=== PATIENT | female | born 1990 | race African-American/Black ===

== ENCOUNTER 2020-08-13 09:01 | Emergency (ER) | payer MEDICAID ==
[~2020-08-13] VITALS: Ht 162.6 cm; Wt 63.0 kg
[~2020-08-13 09:01] MED LIST: ACET650T37 MT; ALBU90AE INH; DOXY150T5 MT; ONDA4TAB5 PO
[2020-08-13] MEDS ORDERED: IBUPROFEN 600MG TABLET PO ONE (10:30)
[2020-08-13 10:53] LABS: CLARITY URINE CLEAR (CLEAR); COLOR URINE YELLOW (YELLOW); KETONES URINE NEGATIVE (NEGATIVE); LEUKOCYTE ESTERASE URINE NEGATIVE (NEGATIVE); NITRITE URINE NEGATIVE (NEGATIVE); OCCULT BLOOD URINE NEGATIVE (NEGATIVE); PROTEIN URINE NEGATIVE (NEGATIVE); SPECIFIC GRAVITY URINE 1.005 (1.005-1.030); UROBILINOGEN URINE 0.2 E.U./dL (0.2-1.0)
[2020-08-13 11:35] LABS: HEMATOCRIT. 27.6 % (36.0-48.0); HEMOGLOBIN. 8.5 g/dL (12.0-16.0); MEAN CORPUSCULAR HEMOGLOBIN 23.7 pg (28.0-32.0); MEAN CORPUSCULAR VOLUME 76.5 fL (81.0-99.0); MEAN PLATELET VOLUME 6.7 fl (7.4-10.4); PLATELET 465 x1000/uL (130-400); RED BLOOD CELL COUNT 3.61 mill/uL (4.2-5.4); RED CELL DISTRIBUTION WIDTH 35.7 % (11.6-14.6)
[2020-08-13 11:43] LABS: CHLORIDE 110 mEq/L (98-107)
[2020-08-13 11:59] LABS: HCG SCREEN NEGATIVE
[2020-08-13 12:09] LABS: PLATELET ESTIMATE INCREASED
[2020-08-13 12:13] LABS: ETHANOL BLOOD 351 mg/dL
[2020-08-13] MEDS ORDERED: IBUP-2029 MT (12:36)
[2020-08-13 14:00] VITALS: BP 116/84
== END 2020-08-13 14:27 | disposition home or self-care (01) ==
LOC: ER 09:01
DX: R10.2 Pelvic and perineal pain (principal); F10.129 Alcohol abuse with intoxication, unspecified; J45.909 Unspecified asthma, uncomplicated; Y90.8 Blood alcohol level of 240 mg/100 ml or more; Z98.890 Other specified postprocedural states; Z91.012 Allergy to eggs; Z91.018 Allergy to other foods; Z91.010 Allergy to peanuts
CPT/HCPCS: 36415; 74176; 80053; 80320; 81003; 81025; 84703; 85025; 93005; 99285; G0480

== ENCOUNTER 2020-10-18 10:54 | Emergency (ER) | payer MEDICAID, OTHER ==
[~2020-10-18] VITALS: Ht 170.2 cm; Wt 68.0 kg
[~2020-10-18 10:54] MED LIST changes: +IBUP-2029 MT
[2020-10-18] MEDS ORDERED: ONDANSETRON HCL 4MG/2ML INJ IV STA (11:15)
[2020-10-18] MEDS ORDERED: MORPHINE SULFATE 4 MG/ML CPJ (NOT FOR IM USE) IV STA (11:15)
[2020-10-18] MEDS ORDERED: VISCOUS LIDOCAINE 2% 15 ML UDC PO STA (11:15)
[2020-10-18] MEDS ORDERED: MAGNESIUM/ALUMINUM HYDROXIDE/SIMETHICONE 30ML UDC PO STA (11:15)
[2020-10-18] MEDS ORDERED: SODIUM CHLORIDE 0.9% 1,000 ML IV ONE (11:15)
[2020-10-18 12:06] LABS: CLARITY URINE CLEAR (CLEAR); COLOR URINE YELLOW (YELLOW); KETONES URINE 2+ (NEGATIVE); LEUKOCYTE ESTERASE URINE NEGATIVE (NEGATIVE); NITRITE URINE NEGATIVE (NEGATIVE); OCCULT BLOOD URINE NEGATIVE (NEGATIVE); PROTEIN URINE NEGATIVE (NEGATIVE); SPECIFIC GRAVITY URINE 1.005 (1.005-1.030); UROBILINOGEN URINE 0.2 E.U./dL (0.2-1.0)
[2020-10-18 12:07] LABS: BASOPHILS % 2.4 % (0.0-2.0); EOSINOPHILS % 0.1 % (0.0-5.0); HEMATOCRIT. 27.3 % (36.0-48.0); HEMOGLOBIN. 8.6 g/dL (12.0-16.0); LYMPHOCYTES % 37.2 % (20.0-50.0); MEAN CORPUSCULAR HEMOGLOBIN 22.6 pg (28.0-32.0); MEAN CORPUSCULAR VOLUME 72.1 fL (81.0-99.0); MEAN PLATELET VOLUME 7.4 fl (7.4-10.4); NEUTROPHILS % 49.3 % (40.0-76.0); PLATELET 470 x1000/uL (130-400); RED BLOOD CELL COUNT 3.79 mill/uL (4.2-5.4); RED CELL DISTRIBUTION WIDTH 25.1 % (11.6-14.6)
[2020-10-18 12:13] LABS: CHLORIDE 97 mEq/L (98-107)
[2020-10-18 12:17] LABS: ETHANOL BLOOD < 10 mg/dL
[2020-10-18 12:25] LABS: PLATELET ESTIMATE INCREASED
[2020-10-18 12:27] LABS: INR 1.1; PROTHROMBIN TIME 11.5 sec (9.6-11.0)
[2020-10-18 16:51] VITALS: BP 119/81
== END 2020-10-18 17:19 | disposition home or self-care (01) ==
LOC: ER 10:54
DX: R10.9 Unspecified abdominal pain (principal); E86.0 Dehydration; J45.909 Unspecified asthma, uncomplicated; Z87.19 Personal history of other diseases of the digestive system; Z91.010 Allergy to peanuts; Z91.012 Allergy to eggs; Z91.048 Other nonmedicinal substance allergy status
CPT/HCPCS: 36415; 76705; 80053; 80320; 81003; 81025; 83690; 85025; 85610; 93005; 96361; 96374; 96375; 99285; J2270; J2405; J7030; Z7610; G0480

== ENCOUNTER 2020-11-01 04:22 | Inpatient (IN) | payer OTHER ==
[~2020-11-01] VITALS: Ht 165.1 cm; Wt 73.5 kg
[2020-11-01] MEDS ORDERED: ONDANSETRON 4MG ODT PO STA (04:30)
[2020-11-01] MEDS ORDERED: KETOROLAC 60MG/2ML VIAL IM STA (04:30)
[2020-11-01] MEDS ORDERED: SODIUM CHLORIDE 0.9% 1,000 ML IV ONE ×2 (04:45→09:30)
[2020-11-01 05:44] LABS: HEMATOCRIT. 32.1 % (36.0-48.0); HEMOGLOBIN. 9.6 g/dL (12.0-16.0); MEAN CORPUSCULAR HEMOGLOBIN 21.1 pg (28.0-32.0); MEAN CORPUSCULAR VOLUME 70.9 fL (81.0-99.0); MEAN PLATELET VOLUME 7.1 fl (7.4-10.4); PLATELET 316 x1000/uL (130-400); RED BLOOD CELL COUNT 4.53 mill/uL (4.2-5.4)
[2020-11-01 05:45] LABS: CHLORIDE 90 mEq/L (98-107)
[2020-11-01 05:50] LABS: ETHANOL BLOOD < 10 mg/dL
[2020-11-01 07:45] LABS: CLARITY URINE CLEAR (CLEAR); COLOR URINE ORANGE (YELLOW); KETONES URINE 4+ (NEGATIVE); LEUKOCYTE ESTERASE URINE NEGATIVE (NEGATIVE); NITRITE URINE NEGATIVE (NEGATIVE); OCCULT BLOOD URINE NEGATIVE (NEGATIVE); PH URINE 5.5 (4.5-8.0); PROTEIN URINE 2+ (NEGATIVE); SPECIFIC GRAVITY URINE 1.027 (1.005-1.030)
[2020-11-01 08:00] LABS: *AMPHETAMINES SCREEN URINE NEGATIVE (NEGATIVE); *BARBITURATES SCREEN URINE NEGATIVE (NEGATIVE); *BENZODIAZEPINES SCREEN URINE NEGATIVE (NEGATIVE); *COCAINE SCREEN URINE NEGATIVE (NEGATIVE); METHADONE URINE SCREEN NEGATIVE (NEGATIVE); OPIATES URINE SCREEN NEGATIVE (NEGATIVE); PHENCYCLIDINE URINE SCREEN NEGATIVE (NEGATIVE)
[2020-11-01 08:03] LABS: CANNABINOID URINE SCREEN PRESUMTIVE POSITIVE (NEGATIVE)
[2020-11-01] MEDS ORDERED: ACETAMINOPHEN WITH CODEINE 300/30MG TABLET PO ONE (09:00)
[2020-11-01] MEDS ORDERED: IBUP-2030 PO (09:09)
[2020-11-01 10:26] LABS: PLATELET ESTIMATE NORMAL
[2020-11-01] MEDS ORDERED: ACETAMINOPHEN 325MG TABLET PO PRN (13:45)
[2020-11-01] MEDS ORDERED: ONDANSETRON HCL 4MG/2ML INJ IV PRN (13:45)
[2020-11-01] MEDS: KETOROLAC 30MG/ML VIAL IV PRN ×2 (15:18→21:26)
[2020-11-01 18:01] VITALS: BP 142/62
[2020-11-01 20:00] VITALS: BP 119/73
[2020-11-01 21:00] VITALS: BP 136/83
[2020-11-01 22:00] VITALS: BP 135/84
[2020-11-02] VITALS (8 sets, daily range): BP systolic 99–146; BP diastolic 57–96
[2020-11-02 07:10] LABS: HEMOGLOBIN. 8.5 g/dL (12.0-16.0); MEAN CORPUSCULAR HEMOGLOBIN 21.6 pg (28.0-32.0); MEAN CORPUSCULAR VOLUME 70.9 fL (81.0-99.0); MEAN PLATELET VOLUME 7.9 fl (7.4-10.4); PLATELET 221 x1000/uL (130-400); RED BLOOD CELL COUNT 3.96 mill/uL (4.2-5.4); RED CELL DISTRIBUTION WIDTH 23.9 % (11.6-14.6)
[2020-11-02 07:21] LABS: CHLORIDE 98 mEq/L (98-107)
[2020-11-02] MEDS ORDERED: POTASSIUM CHLORIDE 20MEQ TABLET SR PO NR (09:30)
[2020-11-02] MEDS: KETOROLAC 30MG/ML VIAL IV PRN ×2 (10:58→20:32)
[2020-11-02 13:26] LABS: PLATELET ESTIMATE NORMAL
[2020-11-03] VITALS: BP 114/71
[2020-11-03 02:00] VITALS: BP 125/84
[2020-11-03 04:00] VITALS: BP 118/78
[2020-11-03 08:00] VITALS: BP 111/74
[2020-11-03] MEDS: KETOROLAC 30MG/ML VIAL IV PRN (09:37)
[2020-11-03 12:00] VITALS: BP 112/74
[2020-11-03] MEDS ORDERED: IBUP-2029 MT (12:34)
[2020-11-03 12:42] VITALS: BP 112/74
== END 2020-11-03 14:45 | disposition home or self-care (01) | DRG 249 ==
LOC: ER 04:22 → 5EST 10:35 → ENRESERV 15:07
PROVIDERS: ADMIT Internal Medicine; ATTEND Internal Medicine
DX: K52.9 Noninfective gastroenteritis and colitis, unspecified (principal); E87.1 Hypo-osmolality and hyponatremia; E87.8 Other disorders of electrolyte and fluid balance, not elsewhere classified; D25.9 Leiomyoma of uterus, unspecified; D72.825 Bandemia; D64.9 Anemia, unspecified; R74.01 Elevation of levels of liver transaminase levels; J45.909 Unspecified asthma, uncomplicated; F12.90 Cannabis use, unspecified, uncomplicated; Z91.010 Allergy to peanuts; Z91.02 Food additives allergy status; Z79.1 Long term (current) use of non-steroidal anti-inflammatories (NSAID); Z79.899 Other long term (current) drug therapy; Z83.3 Family history of diabetes mellitus; Z82.49 Family history of ischemic heart disease and other diseases of the circulatory system
CPT/HCPCS: 36415; 71045; 76830; 76856; 80048; 80053; 80305; 80320; 81003; 83605; 84145; 84484; 85025; 93005; 99285; J1885; J2405; J7030; Q0162; G0480

== ENCOUNTER 2020-11-11 09:59 | Emergency (ER) | payer OTHER ==
[~2020-11-11] VITALS: Ht 162.6 cm; Wt 68.0 kg
[~2020-11-11 09:59] MED LIST changes: -DOXY150T5 MT; +IBUP-2030 PO
[2020-11-11] MEDS ORDERED: ONDANSETRON HCL 4MG/2ML INJ IV STA (11:20)
[2020-11-11] MEDS ORDERED: SODIUM CHLORIDE 0.9% 1,000 ML IV ONE (11:30)
[2020-11-11 11:44] LABS: HEMOGLOBIN. 8.7 g/dL (12.0-16.0); MEAN CORPUSCULAR HEMOGLOBIN 22.1 pg (28.0-32.0); MEAN CORPUSCULAR VOLUME 71.1 fL (81.0-99.0); MEAN PLATELET VOLUME 6.9 fl (7.4-10.4); PLATELET 215 x1000/uL (130-400); RED BLOOD CELL COUNT 3.95 mill/uL (4.2-5.4); RED CELL DISTRIBUTION WIDTH 28.2 % (11.6-14.6)
[2020-11-11] MEDS ORDERED: PANTOPRAZOLE SODIUM 40 MG/VIAL IV ONE (11:45)
[2020-11-11] MEDS ORDERED: LORAZEPAM 2MG/ML CPJ IV ONE (11:45)
[2020-11-11 11:50] LABS: CHLORIDE 92 mEq/L (98-107)
[2020-11-11 11:51] LABS: HCG SCREEN NEGATIVE
[2020-11-11 12:13] LABS: PLATELET ESTIMATE NORMAL
[2020-11-11 12:47] LABS: CLARITY URINE CLOUDY (CLEAR); COLOR URINE YELLOW (YELLOW); KETONES URINE 4+ (NEGATIVE); LEUKOCYTE ESTERASE URINE NEGATIVE (NEGATIVE); NITRITE URINE NEGATIVE (NEGATIVE); OCCULT BLOOD URINE NEGATIVE (NEGATIVE); PROTEIN URINE 1+ (NEGATIVE); SPECIFIC GRAVITY URINE 1.019 (1.005-1.030); UROBILINOGEN URINE 0.2 E.U./dL (0.2-1.0)
[2020-11-11 16:00] VITALS: BP 128/69
== END 2020-11-11 16:27 | disposition home or self-care (01) ==
LOC: ER 10:08
DX: R11.2 Nausea with vomiting, unspecified (principal); R10.9 Unspecified abdominal pain; D72.819 Decreased white blood cell count, unspecified; D64.9 Anemia, unspecified; E86.0 Dehydration; J45.909 Unspecified asthma, uncomplicated; Z79.899 Other long term (current) drug therapy; Z91.012 Allergy to eggs; Z91.010 Allergy to peanuts; Z91.018 Allergy to other foods
CPT/HCPCS: 36415; 80053; 81003; 83690; 84703; 85025; 96361; 96374; 96375; 99291; C9113; J2060; J2405; J7030; Z7610

== ENCOUNTER 2020-12-18 15:05 | Emergency (ER) | payer OTHER ==
[~2020-12-18] VITALS: Ht 167.6 cm; Wt 80.0 kg
[2020-12-18 16:30] LABS: CLARITY URINE CLEAR (CLEAR); COLOR URINE YELLOW (YELLOW); KETONES URINE NEGATIVE (NEGATIVE); LEUKOCYTE ESTERASE URINE NEGATIVE (NEGATIVE); NITRITE URINE NEGATIVE (NEGATIVE); OCCULT BLOOD URINE NEGATIVE (NEGATIVE); PROTEIN URINE 1+ (NEGATIVE); SPECIFIC GRAVITY URINE 1.006 (1.005-1.030); UROBILINOGEN URINE 0.2 E.U./dL (0.2-1.0)
[2020-12-18] MEDS ORDERED: SODIUM CHLORIDE 0.9% 1,000 ML IV ONE (16:30)
[2020-12-18 16:43] LABS: *AMPHETAMINES SCREEN URINE NEGATIVE (NEGATIVE); *BARBITURATES SCREEN URINE NEGATIVE (NEGATIVE); *BENZODIAZEPINES SCREEN URINE NEGATIVE (NEGATIVE); *COCAINE SCREEN URINE NEGATIVE (NEGATIVE); METHADONE URINE SCREEN NEGATIVE (NEGATIVE)
[2020-12-18 16:44] LABS: CANNABINOID URINE SCREEN NEGATIVE (NEGATIVE); OPIATES URINE SCREEN NEGATIVE (NEGATIVE); PHENCYCLIDINE URINE SCREEN NEGATIVE (NEGATIVE)
[2020-12-18 16:45] LABS: HEMATOCRIT. 34.9 % (36.0-48.0); HEMOGLOBIN. 10.9 g/dL (12.0-16.0); MEAN CORPUSCULAR VOLUME 76.8 fL (81.0-99.0); MEAN PLATELET VOLUME 6.7 fl (7.4-10.4); PLATELET 386 x1000/uL (130-400); RED BLOOD CELL COUNT 4.55 mill/uL (4.2-5.4)
[2020-12-18 16:50] LABS: CHLORIDE 102 mEq/L (98-107)
[2020-12-18 17:41] LABS: PLATELET ESTIMATE NORMAL
[2020-12-18 18:25] LABS: HCG SCREEN NEGATIVE
[2020-12-18 19:02] VITALS: BP 134/83
== END 2020-12-18 19:03 | disposition home or self-care (01) ==
LOC: ER 15:05
DX: R53.81 Other malaise (principal); Z79.899 Other long term (current) drug therapy; Z91.010 Allergy to peanuts; Z91.012 Allergy to eggs; Z91.048 Other nonmedicinal substance allergy status; J45.909 Unspecified asthma, uncomplicated
CPT/HCPCS: 36415; 71045; 80053; 80305; 80320; 81003; 81025; 83690; 83880; 84443; 84484; 84703; 85025; 99284; J7030; G0480

== ENCOUNTER 2021-04-14 14:54 | Inpatient (IN) | payer MEDICAID, OTHER ==
[~2021-04-14] VITALS: Ht 167.6 cm; Wt 69.9 kg
[~2021-04-14 14:54] MED LIST changes: -IBUP-2029 MT; -IBUP-2030 PO; +OMEP40CA20 MT; +ONDA4TAB5 MT
[2021-04-14] MEDS ORDERED: ONDANSETRON HCL 4MG/2ML INJ IV STA (15:26)
[2021-04-14] MEDS ORDERED: MORPHINE SULFATE 4 MG/ML CPJ (NOT FOR IM USE) IV STA (15:26)
[2021-04-14] MEDS ORDERED: SODIUM CHLORIDE 0.9% 1,000 ML IV ONE ×2 (15:30→20:00)
[2021-04-14 16:17] LABS: BASOPHILS % 1.7 % (0.0-2.0); EOSINOPHILS % 0.1 % (0.0-5.0); HEMATOCRIT. 33.8 % (36.0-48.0); HEMOGLOBIN. 10.4 g/dL (12.0-16.0); LYMPHOCYTES % 10.8 % (20.0-50.0); MEAN CORPUSCULAR HEMOGLOBIN 26.8 pg (28.0-32.0); MEAN CORPUSCULAR VOLUME 86.7 fL (81.0-99.0); MEAN PLATELET VOLUME 7.6 fl (7.4-10.4); MONOCYTES % 8.6 % (2.0-8.0); NEUTROPHILS % 78.8 % (40.0-76.0); PLATELET 128 x1000/uL (130-400); RED CELL DISTRIBUTION WIDTH 28.6 % (11.6-14.6)
[2021-04-14 16:25] LABS: CHLORIDE 94 mEq/L (98-107)
[2021-04-14 16:29] LABS: INR 1.2; PROTHROMBIN TIME 12.3 sec (9.6-11.0)
[2021-04-14 16:30] LABS: ETHANOL BLOOD 54 mg/dL
[2021-04-14 16:34] LABS: HCG SCREEN NEGATIVE
[2021-04-14 17:43] LABS: PLATELET ESTIMATE SLIGHTLY DECREASED
[2021-04-14] MEDS ORDERED: HALOPERIDOL LACTATE 5MG/ML VIAL IM ONE (20:00)
[2021-04-14] MEDS ORDERED: LORAZEPAM 2MG/ML CPJ IV ONE (20:00)
[2021-04-14] MEDS ORDERED: IOHEXOL-300 100 ML BOTTLE ONE (21:00)
[2021-04-15] MEDS ORDERED: ONDANSETRON HCL 4MG/2ML INJ IV PRN (08:15)
[2021-04-15] MEDS ORDERED: ACETAMINOPHEN 325MG TABLET PO PRN (08:15)
[2021-04-15] MEDS ORDERED: LORAZEPAM 2MG/ML CPJ IV PRN (08:15)
[2021-04-15] MEDS ORDERED: FOLIC ACID 1 MG, THIAMINE HCL 100 MG, MVI, ADULT NO.1 10 ML in DEXTROSE 5% WATER 1,000 ML IV ONE (09:00)
[2021-04-15 09:56] VITALS: BP 117/83
[2021-04-15 12:00] VITALS: BP 122/87
[2021-04-15] MEDS ORDERED: TOPA25 PO (12:54)
[2021-04-15 12:55] VITALS: BP 128/83
[2021-04-15 13:30] VITALS: BP 117/83
[2021-04-15 18:45] VITALS: BP 121/90
[2021-04-15] MEDS ORDERED: FAMOTIDINE 20MG TABLET PO SCH (21:00)
== END 2021-04-15 20:35 | disposition home or self-care (01) | DRG 241 ==
LOC: ER 15:01 → MICUSO 21:34 → EDBEDREQTM 21:39 → EDBEDREQ 21:39 → 6EST 04-15 08:25
PROVIDERS: ADMIT Internal Medicine; ATTEND Internal Medicine
DX: K29.20 Alcoholic gastritis without bleeding (principal); E87.8 Other disorders of electrolyte and fluid balance, not elsewhere classified; E87.1 Hypo-osmolality and hyponatremia; K76.0 Fatty (change of) liver, not elsewhere classified; D64.9 Anemia, unspecified; E87.5 Hyperkalemia; F10.229 Alcohol dependence with intoxication, unspecified; Y90.2 Blood alcohol level of 40-59 mg/100 ml; J45.909 Unspecified asthma, uncomplicated; K86.1 Other chronic pancreatitis; Z91.012 Allergy to eggs; Z91.010 Allergy to peanuts; Z91.018 Allergy to other foods; Z79.899 Other long term (current) drug therapy; Z71.41 Alcohol abuse counseling and surveillance of alcoholic
CPT/HCPCS: 36415; 74177; 80053; 80320; 84703; 85025; 93005; 99285; J1630; J2060; J2270; J2405; J3411; J3490; J7030; J7070; Q9967; G0480

== ENCOUNTER 2021-08-22 10:01 | Emergency (ER) | payer MEDICAID, OTHER ==
[~2021-08-22] VITALS: Ht 160 cm; Wt 73.0 kg
[~2021-08-22 10:01] MED LIST changes: +TOPA25 PO
[2021-08-22] MEDS ORDERED: SODIUM CHLORIDE 0.9% 1,000 ML IV ONE ×2 (10:15→12:15)
[2021-08-22 11:27] LABS: HEMATOCRIT. 34.8 % (36.0-48.0); HEMOGLOBIN. 10.4 g/dL (12.0-16.0); MEAN CORPUSCULAR VOLUME 69.9 fL (81.0-99.0); MEAN PLATELET VOLUME 8.4 fl (7.4-10.4); PLATELET 173 x1000/uL (130-400); RED BLOOD CELL COUNT 4.98 mill/uL (4.2-5.4); RED CELL DISTRIBUTION WIDTH 25.4 % (11.6-14.6)
[2021-08-22 11:35] LABS: CHLORIDE 94 mEq/L (98-107)
[2021-08-22 11:48] LABS: B-HCG QUANTITATIVE < 1 mIU/mL (<3)
[2021-08-22 11:58] LABS: HCG SCREEN NEGATIVE
[2021-08-22 12:35] LABS: PLATELET ESTIMATE NORMAL
[2021-08-22 13:15] LABS: INR 1.1; PARTIAL THROMBOPLASTIN TIME 25.2 sec (23.4-31.0); PROTHROMBIN TIME 11.4 sec (9.6-11.0)
[2021-08-22] MEDS ORDERED: KETOROLAC 15MG/ML VIAL IV NR (13:15)
[2021-08-22] MEDS ORDERED: ONDANSETRON HCL 4MG/2ML INJ IV NR (13:15)
[2021-08-22] MEDS ORDERED: ONDA4TAB5 MT (15:30)
[2021-08-22] MEDS ORDERED: MEDR10TA11 MT (15:33)
[2021-08-22 15:51] LABS: CLARITY URINE CLOUDY (CLEAR); COLOR URINE RED (YELLOW); KETONES URINE 2+ (NEGATIVE); LEUKOCYTE ESTERASE URINE 1+ (NEGATIVE); NITRITE URINE NEGATIVE (NEGATIVE); OCCULT BLOOD URINE 3+ (NEGATIVE); PH URINE 5.5 (4.5-8.0); PROTEIN URINE 3+ (NEGATIVE); UROBILINOGEN URINE 0.2 E.U./dL (0.2-1.0)
[2021-08-22] MEDS ORDERED: NITR-87 MT (16:59)
[2021-08-22 17:11] VITALS: BP 121/76
[2021-08-22 17:34] LABS: *AMPHETAMINES SCREEN URINE NEGATIVE (NEGATIVE); *BENZODIAZEPINES SCREEN URINE NEGATIVE (NEGATIVE); *COCAINE SCREEN URINE NEGATIVE (NEGATIVE); CANNABINOID URINE SCREEN NEGATIVE (NEGATIVE); OPIATES URINE SCREEN NEGATIVE (NEGATIVE); PHENCYCLIDINE URINE SCREEN NEGATIVE (NEGATIVE)
[2021-08-23 18:28] LABS: *BARBITURATES SCREEN URINE NEGATIVE (NEGATIVE); METHADONE URINE SCREEN NEGATIVE (NEGATIVE)
== END 2021-08-22 17:13 | disposition home or self-care (01) ==
LOC: ER 10:01
DX: N93.9 Abnormal uterine and vaginal bleeding, unspecified (principal); E86.0 Dehydration; K59.00 Constipation, unspecified; E87.1 Hypo-osmolality and hyponatremia; J45.909 Unspecified asthma, uncomplicated; Z91.010 Allergy to peanuts; Z91.012 Allergy to eggs; Z91.048 Other nonmedicinal substance allergy status
CPT/HCPCS: 36415; 80053; 80305; 81003; 84702; 84703; 85025; 85610; 85730; 86850; 86900; 86901; 93005; 96361; 96374; 96375; 99291; J1885; J2405; J7030; Z7610

== ENCOUNTER 2022-05-08 11:56 | Emergency (ER) | payer MEDICAID, OTHER ==
[~2022-05-08] VITALS: Ht 167.6 cm; Wt 91.0 kg
[~2022-05-08 11:56] MED LIST changes: +ACET-3163 MT; -ACET650T37 MT; +MEDR10TA11 MT; +NITR-87 MT
[2022-05-08 12:14] VITALS: BP 139/82
[2022-05-08] MEDS ORDERED: TC025C15 TP (13:19)
== END 2022-05-08 13:53 | disposition home or self-care (01) ==
LOC: ER 11:56
DX: R21 Rash and other nonspecific skin eruption (principal); J45.909 Unspecified asthma, uncomplicated; D64.9 Anemia, unspecified; Z87.19 Personal history of other diseases of the digestive system; Z91.010 Allergy to peanuts; Z91.012 Allergy to eggs; Z91.018 Allergy to other foods
CPT/HCPCS: 99283